=== PATIENT | female | born 1945 | race African-American/Black ===

== ENCOUNTER 2024-11-11 11:21 | Outpatient (CLI) | payer MEDICARE ==
[2024-11-11 13:28] LABS: #Basophils Less than 0.03 10x3/uL (0.0-0.2); #Eosinophils 0.09 10x3/uL (0.0-0.5); #Monocytes 0.50 10x3/uL (0.0-1.1); #Neutrophils 2.65 10x3/uL (1.5-8.4); %Basophils 0.5 % (0.0-2.0); %Eosinophils 2.1 % (0.0-6.0); %Lymphocytes 24.3 % (18.0-47.0); %Monocytes 11.6 % (0.0-10.0); %Neutrophils 61.3 % (40.0-75.0); Hematocrit 37.7 % (34.9-44.5); Hemoglobin 11.8 g/dL (12.0-15.5); Mean Corpuscular Hemoglobin 30.4 pg (27.0-33.0); Mean Corpuscular Volume 97.2 fL (81.6-98.3); Platelet Count 174 10x3/uL (150-450); Red Blood Cell (RBC) Count 3.88 10x6/uL (3.90-5.03); White Blood Cell (WBC) Count 4.32 10x3/uL (3.5-10.5)
[2024-11-11 13:54] LABS: Anion Gap 14 mmol/L (10-20); BUN (Urea Nitrogen) 27 mg/dL (9.8-20.1); Calc. Creatinine Clearance 0 mL/min (70-130); Calcium 9.5 mg/dL (7.8-10.44); Carbon Dioxide 28 mmol/L (23-31); Chloride 104 mmol/L (98-107); Glucose 81 mg/dL (83-110); Potassium 4.2 mmol/L (3.5-5.1); Sodium 142 mmol/L (136-145)
== END 2024-11-11 11:22 | disposition home or self-care (01) ==
LOC: CSHLAB 11:21
PROVIDERS: ATTEND Specialist
DX: Z01.818 Encounter for other preprocedural examination (principal); C50.911 Malignant neoplasm of unspecified site of right female breast; J90 Pleural effusion, not elsewhere classified
CPT/HCPCS: 71046; 80048; 85025; 93005; 93010

== ENCOUNTER 2024-12-06 08:27 | Observation (INO) | payer MEDICARE ==
[2024-12-06] MEDS ORDERED: Ketorolac Tromethamine 30 MG (1 mL) VIAL ONE ×2 (09:57→12:36)
[2024-12-06] MEDS ORDERED: Acetaminophen 500 MG TAB ONE (09:57)
[2024-12-06 10:10] LABS: #Basophils Less than 0.03 10x3/uL (0.0-0.2); #Eosinophils 0.11 10x3/uL (0.0-0.5); #Monocytes 0.44 10x3/uL (0.0-1.1); #Neutrophils 1.91 10x3/uL (1.5-8.4); %Basophils 0.3 % (0.0-2.0); %Eosinophils 3.0 % (0.0-6.0); %Lymphocytes 32.1 % (18.0-47.0); %Monocytes 12.1 % (0.0-10.0); %Neutrophils 52.2 % (40.0-75.0); Hematocrit 38.0 % (34.9-44.5); Hemoglobin 11.5 g/dL (12.0-15.5); Mean Corpuscular Hemoglobin 29.8 pg (27.0-33.0); Mean Corpuscular Volume 98.4 fL (81.6-98.3); Platelet Count 163 10x3/uL (150-450); Red Blood Cell (RBC) Count 3.86 10x6/uL (3.90-5.03); White Blood Cell (WBC) Count 3.65 10x3/uL (3.5-10.5)
[2024-12-06 10:36] LABS: Anion Gap 16 mmol/L (10-20); BUN (Urea Nitrogen) 25 mg/dL (9.8-20.1); Calc. Creatinine Clearance 66 mL/min (70-130); Calcium 9.6 mg/dL (7.8-10.44); Carbon Dioxide 25 mmol/L (23-31); Chloride 108 mmol/L (98-107); Glucose 80 mg/dL (83-110); Potassium 4.9 mmol/L (3.5-5.1); Sodium 144 mmol/L (136-145)
[2024-12-06] MEDS ORDERED: Ondansetron PF 4 MG/2 ML Vial ONE (11:57)
[2024-12-06] MEDS ORDERED: SUCCINYLCHOLINE/SOD CL,ISO/PF 200 MG/10 ML SYRINGE FS ONE (11:57)
[2024-12-06] MEDS ORDERED: Lidocaine 1% (PF) 30 ML VIAL ONE (11:58)
[2024-12-06] MEDS ORDERED: Bupivacaine/Epinephrine 0.25% 30 ML VIAL ONE (11:58)
[2024-12-06] MEDS ORDERED: Sevoflurane 250 ML INH ANEST BOTTLE ONE (12:03)
[2024-12-06] MEDS ORDERED: CEFAZOLIN 2 GM VIAL ONE (12:09)
[2024-12-06] MEDS ORDERED: SUGAMMADEX SODIUM 200 MG/2 ML VIAL ONE (13:07)
[2024-12-06] MEDS ORDERED: Rocuronium Bromide 10 MG/ML (10ML VIAL) ONE (13:07)
[2024-12-06] MEDS ORDERED: CEFAZOLIN 1 GM VIAL ONE (14:53)
[2024-12-06] MEDS ORDERED: ALPRAZolam 0.25 MG TAB PO PRN (16:30)
[2024-12-06] MEDS: HYDROcodone/Acetaminophen 7.5/325 mg Tablet PO PRN (22:11)
[2024-12-06 23:16] VITALS: BMI 40.4
[2024-12-07 04:39] LABS: #Basophils Less than 0.03 10x3/uL (0.0-0.2); #Eosinophils Less than 0.03 10x3/uL (0.0-0.5); #Monocytes 0.73 10x3/uL (0.0-1.1); #Neutrophils 8.46 10x3/uL (1.5-8.4); %Basophils 0.1 % (0.0-2.0); %Eosinophils 0.0 % (0.0-6.0); %Lymphocytes 7.7 % (18.0-47.0); %Monocytes 7.3 % (0.0-10.0); %Neutrophils 84.6 % (40.0-75.0); Hematocrit 29.7 % (34.9-44.5); Hemoglobin 8.9 g/dL (12.0-15.5); Mean Corpuscular Hemoglobin 29.5 pg (27.0-33.0); Mean Corpuscular Volume 98.3 fL (81.6-98.3); Platelet Count 132 10x3/uL (150-450); Red Blood Cell (RBC) Count 3.02 10x6/uL (3.90-5.03); White Blood Cell (WBC) Count 10.00 10x3/uL (3.5-10.5)
[2024-12-07 04:50] LABS: Anion Gap 8 mmol/L (10-20); BUN (Urea Nitrogen) 24 mg/dL (9.8-20.1); Calc. Creatinine Clearance 60 mL/min (70-130); Calcium 8.4 mg/dL (7.8-10.44); Carbon Dioxide 29 mmol/L (23-31); Chloride 106 mmol/L (98-107); Glucose 126 mg/dL (83-110); Potassium 5.2 mmol/L (3.5-5.1); Sodium 138 mmol/L (136-145)
[2024-12-07 06:57] VITALS: BP 94/53; TEMP 97.8
[2024-12-07] MEDS ORDERED: BIOTIN FS SCH (09:00)
[2024-12-07] MEDS: Losartan 50 MG TAB PO SCH (10:51)
[2024-12-07] MEDS ORDERED: EXEMESTANE FS SCH (21:00)
[2024-12-09] MEDS ORDERED: Apixaban 5 MG TAB PO SCH (09:00)
== END 2024-12-07 12:15 | disposition home or self-care (01) ==
LOC: CSHSDC 08:27 → CSHTELE 19:34
PROVIDERS: ADMIT Specialist; ATTEND Specialist
PROC: 0HX5XZZ Transfer Chest Skin, External Approach (ICD-10-PCS; principal; 2024-12-06)
PROC: 0HTV0ZZ Resection of Bilateral Breast, Open Approach (ICD-10-PCS; principal; 2024-12-06)
PROC: 0JH60WZ Insertion of Totally Implantable Vascular Access Device into Chest Subcutaneous Tissue and Fascia, Open Approach (ICD-10-PCS; principal; 2024-12-06)
DX: C50.811 Malignant neoplasm of overlapping sites of right female breast (principal); N62 Hypertrophy of breast; N60.32 Fibrosclerosis of left breast; N64.1 Fat necrosis of breast; I10 Essential (primary) hypertension; I48.91 Unspecified atrial fibrillation; F32.A Depression, unspecified; Z90.710 Acquired absence of both cervix and uterus; Z98.890 Other specified postprocedural states; Z88.6 Allergy status to analgesic agent; Z79.01 Long term (current) use of anticoagulants; Z79.899 Other long term (current) drug therapy
CPT/HCPCS: 14301; 14302; 19303; 36561; 71045; 80048 ×2; 85025 ×2; A6258 ×2; C1788; J1100; J1642; J1885; J2405; J3010; J7030; 36415; 88309; 88341; 88342; J0690